=== PATIENT | female | born 1950 | race African-American/Black ===

== ENCOUNTER 2023-12-14 07:18 | Inpatient (IN) | payer OTHER ==
[2023-12-14] MEDS ORDERED: Bisacodyl 5 MG TAB PO PRN (08:59)
[2023-12-14] MEDS ORDERED: Ondansetron ODT 4 MG TAB PO PRN (08:59)
[2023-12-14] MEDS ORDERED: Dextrose 50% Abboject 50 ML SYRINGE SLOW IVP PRN (08:59)
[2023-12-14] MEDS ORDERED: Glucagon 1 MG/ML KIT IM PRN (08:59)
[2023-12-14] MEDS: hydrALAZINE 25 MG TAB PO PRN (15:12)
[2023-12-14] MEDS: Famotidine 20 MG TAB PO SCH (15:12)
[2023-12-14] MEDS: Pilocarpine 1% Ophth Drops 15 ML BOT R EYE SCH (15:20)
[2023-12-14] MEDS: Gabapentin 100 MG CAP PO SCH (15:24)
[2023-12-14] MEDS: HumaLOG 300 UNITS/3 ML VIAL SC PRN ×2 (16:38→21:52)
[2023-12-14] MEDS: traMADol HCl 50 MG TAB PO PRN (20:55)
[2023-12-14] MEDS: DorzolamidE/Timolol 2%/0.5% Ophth Soln 10 ml Bottle EA EYE SCH (20:57)
[2023-12-14] MEDS ORDERED: Latanoprost 0.005% Ophth Soln 2.5 ml Bottle R EYE SCH (21:00)
[2023-12-14] MEDS: Memantine 10 MG TAB PO SCH (21:00)
[2023-12-14] MEDS: Latanoprost 0.005% Ophth Soln 2.5 ml Bottle EA EYE SCH (21:02)
[2023-12-14] MEDS: Lantus 1000 UNITS/10 ML VIAL SC SCH (21:51)
[2023-12-15] MEDS: Levothyroxine Sodium 88 MCG TAB PO SCH (05:40)
[2023-12-15 06:16] LABS: #Basophils 0.1 thou/uL (0.0-0.2); #Eosinphils 0.2 thou/uL (0.0-0.7); #Monocytes 0.8 thou/uL (0.11-0.59); %Basophils 0.8 % (0.0-1.0); %Eosinophils 2.2 % (0.0-10.0); %Lymphocytes 22.1 % (21.0-51.0); %Neutrophils 65.8 % (42.0-75.0); Hematocrit 26.4 % (36.0-47.0); Hemoglobin 8.1 g/dL (12.0-16.0); Mean Corpuscular HGB CONC 30.7 g/dL (32.0-36.0); Mean Corpuscular Hemoglobin 25.4 pg (27.0-31.0); Mean Corpuscular Volume 82.6 fl (78.0-98.0); Platelet Count 185 10x3/uL (130-400); RBC Distribution Width 14.2 % (11.5-14.5); White Blood Cell (WBC) Count 9.1 10x3/uL (4.8-10.8)
[2023-12-15 06:25] LABS: ALT (SGPT) 10 U/L (8-55); AST (SGOT) 18 U/L (5-34); Alkaline Phosphatase 57 U/L (40-110); Anion Gap 14 mmol/L (10-20); BUN (Urea Nitrogen) 19 mg/dL (9.8-20.1); Calc. Creatinine Clearance 40 mL/min (70-130); Calcium 8.6 mg/dL (7.8-10.44); Carbon Dioxide 23 mmol/L (23-31); Chloride 106 mmol/L (98-107); Estimated GFR 43; Globulin 3.3 g/dL (2.4-3.5); Glucose 237 mg/dL (83-110); Potassium 3.7 mmol/L (3.5-5.1); Protein, Total 6.3 g/dL (5.8-8.1); Sodium 139 mmol/L (136-145)
[2023-12-15] MEDS: Acetaminophen 325 MG TAB PO PRN (07:42)
[2023-12-15] MEDS: Losartan 50 MG TAB PO SCH (08:23)
[2023-12-15] MEDS: Rosuvastatin 10 MG TAB PO SCH (08:24)
[2023-12-15] MEDS: Memantine 10 MG TAB PO SCH (08:25)
[2023-12-15] MEDS: Cholecalciferol 1,000 UNITS (25 MCG) TAB PO SCH (08:26)
[2023-12-15] MEDS: Donepezil HCl 10 MG TAB PO SCH (08:27)
[2023-12-15] MEDS: Aspirin Chewable 81 MG TAB PO SCH (08:28)
[2023-12-15] MEDS: Escitalopram Oxalate 10 mg Tablet PO SCH (08:28)
[2023-12-15] MEDS: Cyanocobalamin (Vitamin B-12) 1,000 MCG TAB PO SCH (08:28)
[2023-12-15] MEDS: Enoxaparin 40 MG (0.4 mL) SYRINGE SC SCH (08:29)
[2023-12-15] MEDS: Lantus 1000 UNITS/10 ML VIAL SC SCH (08:31)
[2023-12-15] MEDS ORDERED: Cholecalciferol 1,000 UNITS (25 MCG) TAB PO SCH (09:00)
[2023-12-15] MEDS: HumaLOG 300 UNITS/3 ML VIAL SC PRN (21:20)
[2023-12-16] MEDS: Ferrous Sulfate 325 MG TAB PO SCH (07:41)
[2023-12-16] MEDS: Ascorbic Acid 500 mg Chewable Tablet PO SCH (07:42)
[2023-12-16] MEDS ORDERED: Lantus 1000 UNITS/10 ML VIAL SC SCH (09:00)
[2023-12-17] MEDS ORDERED: HumaLOG 300 UNITS/3 ML VIAL SC PRN (07:30)
[2023-12-17] MEDS: Senokot S 8.6-50 MG TAB PO PRN (13:18)
[2023-12-18 06:04] VITALS: BMI 26.8
[2023-12-18] MEDS: NIFEdipine XL 30 MG ER.TAB PO SCH (09:39)
[2023-12-19 05:54] LABS: #Basophils 0.1 thou/uL (0.0-0.2); #Eosinphils 0.2 thou/uL (0.0-0.7); #Lymphocytes 2.2 thou/uL (1.20-3.40); #Monocytes 0.7 thou/uL (0.11-0.59); %Basophils 1.1 % (0.0-1.0); %Eosinophils 2.9 % (0.0-10.0); Hematocrit 24.7 % (36.0-47.0); Hemoglobin 7.8 g/dL (12.0-16.0); Mean Corpuscular HGB CONC 31.7 g/dL (32.0-36.0); Mean Corpuscular Hemoglobin 25.7 pg (27.0-31.0); Mean Platelet Volume 6.6 fL (7.4-10.4); Platelet Count 309 10x3/uL (130-400); RBC Distribution Width 13.9 % (11.5-14.5); Red Blood Cell (RBC) Count 3.05 mill/uL (4.20-5.40); White Blood Cell (WBC) Count 7.2 10x3/uL (4.8-10.8)
[2023-12-19 06:08] LABS: ALT (SGPT) 10 U/L (8-55); AST (SGOT) 18 U/L (5-34); Albumin 2.9 g/dL (3.4-4.8); Alkaline Phosphatase 65 U/L (40-110); Anion Gap 13 mmol/L (10-20); BUN (Urea Nitrogen) 18 mg/dL (9.8-20.1); Bilirubin, Total 0.5 mg/dL (0.2-1.2); Calc. Creatinine Clearance 43 mL/min (70-130); Calcium 8.6 mg/dL (7.8-10.44); Carbon Dioxide 24 mmol/L (23-31); Chloride 106 mmol/L (98-107); Estimated GFR 46; Globulin 3.2 g/dL (2.4-3.5); Glucose 164 mg/dL (83-110); Protein, Total 6.1 g/dL (5.8-8.1); Sodium 139 mmol/L (136-145)
[2023-12-19] MEDS: Losartan 50 MG TAB PO SCH (09:00)
[2023-12-20 05:56] LABS: Hemoglobin 8.2 g/dL (12.0-16.0); Platelet Count 369 10x3/uL (130-400)
[2023-12-20] MEDS: Sodium Ferric Gluconate 125 MG in Sodium Chloride 0.9% 100 ML IVPB SCH (09:15)
[2023-12-20] MEDS: Sodium Ferric Gluconate 62.5 MG/5 ML AMP ONE (09:16)
[2023-12-20 10:45] VITALS: BMI 26.8
[2023-12-21] MEDS: Amlodipine 10 MG TAB PO SCH (08:29)
[2023-12-21] MEDS: Famotidine 20 MG TAB PO SCH (08:34)
[2023-12-22] MEDS ORDERED: Hydrochlorothiazide 25 MG TAB PO SCH (09:00)
[2023-12-22] MEDS: Hydrochlorothiazide 25 MG TAB PO SCH (10:44)
[2023-12-23] MEDS: Hydrochlorothiazide 25 MG TAB PO SCH (09:39)
[2023-12-23] MEDS: PATIENT'S HOME MEDICATION SC SCH ×2 (09:53→11:56)
[2023-12-23 13:58] VITALS: BP 127/60; TEMP 97.5
[2023-12-24] MEDS ORDERED: PATIENT'S HOME MEDICATION SC SCH (09:00)
== END 2023-12-23 14:45 | disposition home or self-care (01) | DRG 948 ==
LOC: NAV ACUTE 13:52
PROVIDERS: ADMIT Student in an Organized Health Care Education/Training Program; ATTEND Student in an Organized Health Care Education/Training Program
DX: R53.81 Other malaise (principal); F03.90 Unspecified dementia, unspecified severity, without behavioral disturbance, psychotic disturbance, mood disturbance, and anxiety; E03.9 Hypothyroidism, unspecified; I12.9 Hypertensive chronic kidney disease with stage 1 through stage 4 chronic kidney disease, or unspecified chronic kidney disease; D50.9 Iron deficiency anemia, unspecified; H40.9 Unspecified glaucoma; E53.8 Deficiency of other specified B group vitamins; E10.22 Type 1 diabetes mellitus with diabetic chronic kidney disease; N18.30 Chronic kidney disease, stage 3 unspecified; Z86.73 Personal history of transient ischemic attack (TIA), and cerebral infarction without residual deficits; Z79.899 Other long term (current) drug therapy
CPT/HCPCS: 36415; 36416; 80053; 85014; 85018; 85025; 85049; J1650; J1815; J2916; J3490

== ENCOUNTER 2025-04-04 15:56 | Inpatient (IN) | payer OTHER ==
[2025-04-04] MEDS ORDERED: HumaLOG 300 UNITS/3 ML VIAL SC PRN (16:38)
[2025-04-04] MEDS ORDERED: Glucagon 1 MG/ML KIT IM PRN (16:38)
[2025-04-04] MEDS ORDERED: Dextrose 50% Abboject 50 ML SYRINGE SLOW IVP PRN (16:38)
[2025-04-04] MEDS: Gabapentin 100 MG CAP PO SCH (21:16)
[2025-04-04] MEDS: Rosuvastatin 20 MG TAB PO SCH (21:18)
[2025-04-04] MEDS: Famotidine 20 MG TAB PO SCH (21:18)
[2025-04-04] MEDS: Ibuprofen 200 MG TAB PO PRN (21:19)
[2025-04-04] MEDS: DorzolamidE/Timolol 2%/0.5% Ophth Soln 10 ml Bottle EA EYE SCH (21:20)
[2025-04-05] MEDS: Acetaminophen/Codeine 30-300mg Tablet PO SCH (00:06)
[2025-04-05] MEDS: Losartan 50 MG TAB PO SCH (08:59)
[2025-04-05] MEDS: Enoxaparin 40 MG (0.4 mL) SYRINGE SC SCH (08:59)
[2025-04-05] MEDS: Ferrous Sulfate 325 MG TAB PO SCH (08:59)
[2025-04-05] MEDS: Aspirin 81 mg Enteric Coated Tablet PO SCH (08:59)
[2025-04-05] MEDS: Cyanocobalamin (Vitamin B-12) 1,000 MCG TAB PO SCH (08:59)
[2025-04-05] MEDS: Colchicine 0.6 MG TAB PO SCH (08:59)
[2025-04-05] MEDS: Lantus 1000 UNITS/10 ML VIAL SC SCH (09:01)
[2025-04-05 20:17] LABS: #Basophils 0.1 thou/uL (0.0-0.2); #Eosinophils 0.2 thou/uL (0.0-0.7); #Lymphocytes 1.9 thou/uL (1.20-3.40); #Monocytes 0.9 thou/uL (0.11-0.59); #Neutrophils 10.4 thou/uL (1.40-6.50); %Basophils 0.7 % (0.0-1.0); %Eosinophils 1.2 % (0.0-10.0); %Lymphocytes 14.4 % (21.0-51.0); %Monocytes 6.8 % (0.0-10.0); %Neutrophils 76.9 % (42.0-75.0); Hematocrit 28.7 % (36.0-47.0); Hemoglobin 9.7 g/dL (12.0-16.0); Mean Corpuscular Hemoglobin 26.7 pg (27.0-31.0); Mean Corpuscular Volume 78.9 fl (78.0-98.0); Platelet Count 252 10x3/uL (130-400); Red Blood Cell (RBC) Count 3.63 mill/uL (4.20-5.40); White Blood Cell (WBC) Count 13.5 10x3/uL (4.8-10.8)
[2025-04-05 20:22] LABS: ALT (SGPT) 16 U/L (Less than 34); AST (SGOT) 23 U/L (11-34); Albumin 3.6 g/dL (3.1-4.5); Alkaline Phosphatase 83 U/L (40-110); Anion Gap 17 mmol/L (10-20); BUN (Urea Nitrogen) 29 mg/dL (9.8-20.1); Bilirubin, Total 0.4 mg/dL (0.3-1.2); Calc. Creatinine Clearance 27 mL/min (70-130); Calcium 8.5 mg/dL (7.8-10.44); Carbon Dioxide 19 mmol/L (23-31); Chloride 100 mmol/L (98-107); Globulin 3.9 g/dL (2.4-3.5); Glucose 280 mg/dL (83-110); Potassium 4.4 mmol/L (3.5-5.1); Sodium 132 mmol/L (136-145)
[2025-04-05] MEDS: Senokot S 8.6-50 MG TAB PO PRN (20:57)
[2025-04-06 05:44] LABS: Anion Gap 17 mmol/L (10-20); BUN (Urea Nitrogen) 29 mg/dL (9.8-20.1); Calc. Creatinine Clearance 29 mL/min (70-130); Calcium 8.6 mg/dL (7.8-10.44); Carbon Dioxide 21 mmol/L (23-31); Chloride 101 mmol/L (98-107); Glucose 274 mg/dL (83-110); Hematocrit 27.0 % (36.0-47.0); Hemoglobin 9.1 g/dL (12.0-16.0); Mean Corpuscular Hemoglobin 26.3 pg (27.0-31.0); Mean Corpuscular Volume 77.6 fl (78.0-98.0); Platelet Count 253 10x3/uL (130-400); Potassium 4.5 mmol/L (3.5-5.1); Red Blood Cell (RBC) Count 3.48 mill/uL (4.20-5.40); Sodium 134 mmol/L (136-145); White Blood Cell (WBC) Count 10.5 10x3/uL (4.8-10.8)
[2025-04-06 05:58] LABS: MDiff Complete? YES; Platelet Adequacy Comment Appears Adequate
[2025-04-06] MEDS ORDERED: hydrALAZINE 10 MG TAB PO PRN (10:06)
[2025-04-07 04:35] VITALS: BMI 24.1
[2025-04-07] MEDS: Enoxaparin 30 MG (0.3 mL) SYRINGE SC SCH (09:37)
[2025-04-07] MEDS: Lantus 1000 UNITS/10 ML VIAL SC SCH (09:39)
[2025-04-08 05:35] LABS: Anion Gap 14 mmol/L (10-20); BUN (Urea Nitrogen) 26 mg/dL (9.8-20.1); Calc. Creatinine Clearance 40 mL/min (70-130); Calcium 8.8 mg/dL (7.8-10.44); Carbon Dioxide 23 mmol/L (23-31); Chloride 104 mmol/L (98-107); Glucose 176 mg/dL (83-110); Potassium 4.4 mmol/L (3.5-5.1); Sodium 137 mmol/L (136-145)
[2025-04-08] MEDS: Enoxaparin 40 MG (0.4 mL) SYRINGE SC SCH (08:19)
[2025-04-08] MEDS: Famotidine 20 MG TAB PO SCH (20:39)
[2025-04-09] MEDS: Acetaminophen 325 MG TAB PO PRN (10:08)
[2025-04-10] MEDS: Bisacodyl 10 MG SUPP PR SCH (09:52)
[2025-04-12] MEDS: Losartan 50 MG TAB PO SCH (09:27)
[2025-04-14 05:13] LABS: #Basophils 0.1 thou/uL (0.0-0.2); #Eosinophils 0.3 thou/uL (0.0-0.7); #Lymphocytes 3.4 thou/uL (1.20-3.40); #Monocytes 1.1 thou/uL (0.11-0.59); #Neutrophils 8.1 thou/uL (1.40-6.50); %Basophils 1.1 % (0.0-1.0); %Eosinophils 2.0 % (0.0-10.0); %Lymphocytes 26.0 % (21.0-51.0); %Monocytes 8.2 % (0.0-10.0); %Neutrophils 62.7 % (42.0-75.0); Hematocrit 27.3 % (36.0-47.0); Hemoglobin 9.3 g/dL (12.0-16.0); Mean Corpuscular Hemoglobin 26.3 pg (27.0-31.0); Mean Corpuscular Volume 77.5 fl (78.0-98.0); Platelet Count 463 10x3/uL (130-400); Red Blood Cell (RBC) Count 3.52 mill/uL (4.20-5.40); White Blood Cell (WBC) Count 12.9 10x3/uL (4.8-10.8)
[2025-04-14 05:31] LABS: ALT (SGPT) 11 U/L (Less than 34); AST (SGOT) 25 U/L (11-34); Albumin 3.1 g/dL (3.1-4.5); Alkaline Phosphatase 101 U/L (40-110); Anion Gap 14 mmol/L (10-20); BUN (Urea Nitrogen) 31 mg/dL (9.8-20.1); Bilirubin, Total 0.3 mg/dL (0.3-1.2); Calc. Creatinine Clearance 33 mL/min (70-130); Calcium 8.6 mg/dL (7.8-10.44); Carbon Dioxide 25 mmol/L (23-31); Chloride 103 mmol/L (98-107); Globulin 3.8 g/dL (2.4-3.5); Glucose 106 mg/dL (83-110); Potassium 4.5 mmol/L (3.5-5.1); Sodium 137 mmol/L (136-145)
[2025-04-16 06:13] LABS: #Basophils 0.2 thou/uL (0.0-0.2); #Eosinophils 0.3 thou/uL (0.0-0.7); #Lymphocytes 3.7 thou/uL (1.20-3.40); #Monocytes 0.9 thou/uL (0.11-0.59); #Neutrophils 7.0 thou/uL (1.40-6.50); %Basophils 1.9 % (0.0-1.0); %Eosinophils 2.7 % (0.0-10.0); %Lymphocytes 30.6 % (21.0-51.0); %Monocytes 7.3 % (0.0-10.0); %Neutrophils 57.6 % (42.0-75.0); Hematocrit 28.6 % (36.0-47.0); Hemoglobin 9.7 g/dL (12.0-16.0); Mean Corpuscular Hemoglobin 26.2 pg (27.0-31.0); Mean Corpuscular Volume 77.4 fl (78.0-98.0); Platelet Count 488 10x3/uL (130-400); Red Blood Cell (RBC) Count 3.70 mill/uL (4.20-5.40); White Blood Cell (WBC) Count 12.1 10x3/uL (4.8-10.8)
[2025-04-16 06:17] LABS: Anion Gap 16 mmol/L (10-20); BUN (Urea Nitrogen) 30 mg/dL (9.8-20.1); Calc. Creatinine Clearance 33 mL/min (70-130); Calcium 9.0 mg/dL (7.8-10.44); Carbon Dioxide 22 mmol/L (23-31); Chloride 104 mmol/L (98-107); Glucose 174 mg/dL (83-110); Potassium 5.1 mmol/L (3.5-5.1); Sodium 137 mmol/L (136-145)
[2025-04-16] MEDS: Enoxaparin 30 MG (0.3 mL) SYRINGE SC SCH (10:03)
[2025-04-17] MEDS ORDERED: HumaLOG 300 UNITS/3 ML VIAL SC PRN (07:29)
[2025-04-18 06:13] LABS: #Basophils 0.2 thou/uL (0.0-0.2); #Eosinophils 0.3 thou/uL (0.0-0.7); #Lymphocytes 3.7 thou/uL (1.20-3.40); #Monocytes 0.7 thou/uL (0.11-0.59); #Neutrophils 6.9 thou/uL (1.40-6.50); %Basophils 1.3 % (0.0-1.0); %Eosinophils 2.7 % (0.0-10.0); %Lymphocytes 31.5 % (21.0-51.0); %Monocytes 6.3 % (0.0-10.0); %Neutrophils 58.3 % (42.0-75.0); Hematocrit 29.6 % (36.0-47.0); Hemoglobin 10.2 g/dL (12.0-16.0); Mean Corpuscular Hemoglobin 26.9 pg (27.0-31.0); Mean Corpuscular Volume 77.9 fl (78.0-98.0); Platelet Count 447 10x3/uL (130-400); Red Blood Cell (RBC) Count 3.80 mill/uL (4.20-5.40); White Blood Cell (WBC) Count 11.8 10x3/uL (4.8-10.8)
[2025-04-18] MEDS: Lantus 1000 UNITS/10 ML VIAL SC SCH (08:33)
[2025-04-22] MEDS: Acetaminophen/Codeine 30-300mg Tablet PO SCH (13:24)
[2025-04-23 06:03] LABS: #Basophils 0.1 thou/uL (0.0-0.2); #Eosinophils 0.3 thou/uL (0.0-0.7); #Lymphocytes 2.7 thou/uL (1.20-3.40); #Monocytes 0.6 thou/uL (0.11-0.59); #Neutrophils 6.3 thou/uL (1.40-6.50); %Basophils 0.5 % (0.0-1.0); %Eosinophils 3.2 % (0.0-10.0); %Lymphocytes 27.4 % (21.0-51.0); %Monocytes 6.0 % (0.0-10.0); %Neutrophils 62.9 % (42.0-75.0); Hematocrit 27.3 % (36.0-47.0); Hemoglobin 9.3 g/dL (12.0-16.0); Mean Corpuscular Hemoglobin 26.6 pg (27.0-31.0); Mean Corpuscular Volume 77.6 fl (78.0-98.0); Platelet Count 336 10x3/uL (130-400); Red Blood Cell (RBC) Count 3.52 mill/uL (4.20-5.40); White Blood Cell (WBC) Count 10.0 10x3/uL (4.8-10.8)
[2025-04-23 06:07] LABS: Anion Gap 13 mmol/L (10-20); BUN (Urea Nitrogen) 38 mg/dL (9.8-20.1); Calc. Creatinine Clearance 35 mL/min (70-130); Calcium 8.9 mg/dL (7.8-10.44); Carbon Dioxide 21 mmol/L (23-31); Chloride 106 mmol/L (98-107); Glucose 216 mg/dL (83-110); Potassium 4.9 mmol/L (3.5-5.1); Sodium 135 mmol/L (136-145)
[2025-04-23 10:49] VITALS: BMI 24.7
[2025-04-26 07:55] VITALS: BP 125/64; TEMP 98.6
== END 2025-04-26 14:50 | disposition home or self-care (01) | DRG 945 ==
LOC: NAV ACUTE 19:27
PROVIDERS: ADMIT Student in an Organized Health Care Education/Training Program; ATTEND Student in an Organized Health Care Education/Training Program
PROC: F07Z9ZZ Gait Training/Functional Ambulation Treatment (ICD-10-PCS; principal; 2025-04-04)
DX: R53.1 Weakness (principal); S32.501A Unspecified fracture of right pubis, initial encounter for closed fracture; S32.511A Fracture of superior rim of right pubis, initial encounter for closed fracture; I12.9 Hypertensive chronic kidney disease with stage 1 through stage 4 chronic kidney disease, or unspecified chronic kidney disease; F32.A Depression, unspecified; E03.9 Hypothyroidism, unspecified; E10.22 Type 1 diabetes mellitus with diabetic chronic kidney disease; H40.89 Other specified glaucoma; D50.9 Iron deficiency anemia, unspecified; K21.9 Gastro-esophageal reflux disease without esophagitis; R33.9 Retention of urine, unspecified; K59.00 Constipation, unspecified; N18.32 Chronic kidney disease, stage 3b; Z86.73 Personal history of transient ischemic attack (TIA), and cerebral infarction without residual deficits; Z79.890 Hormone replacement therapy; Z79.4 Long term (current) use of insulin; Z79.82 Long term (current) use of aspirin; Z79.899 Other long term (current) drug therapy; Z79.891 Long term (current) use of opiate analgesic
CPT/HCPCS: 36415; 36416; 72190; 80048; 80053; 85025; J1650; J1815